=== PATIENT | male | born 1995 | race Two or more races ===

== ENCOUNTER 2018-11-24 13:34 | Emergency (ER) | payer OTHER ==
[~2018-11-24] VITALS: Ht 170.2 cm; Wt 61.2 kg
[2018-11-24 13:54] VITALS: BP 137/80
[2018-11-24] MEDS ORDERED: cefTRIAXone SOD 1,000 MG VL IM ONE (14:15)
== END 2018-11-24 15:07 | disposition home or self-care (01) ==
LOC: ER 13:34
DX: S61.451A Open bite of right hand, initial encounter (principal); W55.01XA Bitten by cat, initial encounter; Y93.89 Activity, other specified; Y99.8 Other external cause status; Y92.89 Other specified places as the place of occurrence of the external cause
CPT/HCPCS: 73130; 96372; 99283; J0696